=== PATIENT | female | born 1985 | race Caucasian/White ===

== ENCOUNTER 2020-08-14 08:56 | Outpatient (CLI) | payer MEDICAID ==
[~2020-08-14] VITALS: Ht 157.5 cm; Wt 80.0 kg
== END 2020-08-14 09:46 | disposition home or self-care (01) ==
LOC: LDOP 08:56
PROVIDERS: ATTEND Student in an Organized Health Care Education/Training Program
DX: O46.93 Antepartum hemorrhage, unspecified, third trimester (principal); Z3A.36 36 weeks gestation of pregnancy
CPT/HCPCS: 59025

== ENCOUNTER 2020-08-29 03:23 | Inpatient (IN) | payer MEDICAID ==
[~2020-08-29] VITALS: Ht 157.5 cm; Wt 80.0 kg
[2020-08-29] MEDS ORDERED: NEWBORN KIT ONE (04:14)
[2020-08-29] MEDS ORDERED: LIDOCAINE 1%, 20ML ONE (04:14)
[2020-08-29] MEDS ORDERED: MISOPROSTOL 200 MCG TABLET ONE (04:14)
[2020-08-29] MEDS ORDERED: OXYTOCIN 30U/ 0.9% NaCL 500ML 500 ML ONE ×2 (04:14→06:29)
[2020-08-29 04:28] VITALS: BP 106/52
[2020-08-29] MEDS ORDERED: OXYTOCIN 30U/ 0.9% NaCL 500ML 500 ML IV ONE (04:30)
[2020-08-29] MEDS ORDERED: SODIUM CITRATE/CITRIC ACID 30 ML UDC PO PRN (04:30)
[2020-08-29] MEDS ORDERED: TERBUTALINE 1 MG/ML, 1ML IVPush PRN (04:30)
[2020-08-29] MEDS ORDERED: ONDANSETRON 2MG/ML, 2ML IVPush PRN (04:30)
[2020-08-29] MEDS ORDERED: LACTATED RINGERS 1,000 ML IV SCH (04:30)
[2020-08-29] MEDS ORDERED: METOCLOPRAMIDE 5 MG/ML, 2ML IVPush PRN (04:30)
[2020-08-29] MEDS ORDERED: OXYTOCIN 30U/ 0.9% NaCL 500ML 500 ML IV PRN (04:30)
[2020-08-29] MEDS ORDERED: FENTANYL PF 100 MCG/2ML IVPush PRN (04:30)
[2020-08-29] MEDS ORDERED: CALCIUM CARBONATE 500 MG TAB.CHEW PO PRN (04:30)
[2020-08-29] MEDS ORDERED: D5%-LACTATED RINGERS 1,000 ML IV SCH (04:30)
[2020-08-29] MEDS ORDERED: TERBUTALINE 1 MG/ML, 1ML SQ PRN (04:30)
[2020-08-29] MEDS ORDERED: FENTANYL PF 100 MCG/2ML IV PRN (04:30)
[2020-08-29 04:56] LABS: BASOPHILS % (AUTO) 1 % (0-1); EOSINOPHILS % (AUTO) 1 % (1-7); LYMPHOCYTES % (AUTO) 20 % (22-44); MEAN CORPUSCULAR HGB CONC 34.4 g/dL (32.4-35.8); MEAN PLATELET VOLUME 10.3 fL (7.4-10.4); MONOCYTES % (AUTO) 7 % (2-9); NEUTROPHILS % (AUTO) 71 % (42-75); PLATELET COUNT 198 x10^3/uL (130-400); RED BLOOD COUNT 4.03 x10^6/uL (3.82-5.3); RED CELL DISTRIBUTION WIDTH 13.7 % (9.6-15.2)
[2020-08-29] MEDS ORDERED: FENTANYL PF 100 MCG/2ML ONE (04:56)
[2020-08-29] MEDS ORDERED: ONDANSETRON 2MG/ML, 2ML ONE (04:56)
[2020-08-29 04:59] LABS: MD NO
[2020-08-29] MEDS ORDERED: TERBUTALINE 1 MG/ML, 1ML ONE (05:11)
[2020-08-29] MEDS ORDERED: METHYLERGONOVINE 0.2 MG/ML IM PRN (06:30)
[2020-08-29] MEDS ORDERED: ONDANSETRON 2MG/ML, 2ML IV PRN (06:30)
[2020-08-29] MEDS ORDERED: SIMETHICONE 80 MG CHEW TAB PO PRN (06:30)
[2020-08-29] MEDS ORDERED: ACETAMINOPHEN 325 MG TABLET PO PRN (06:30)
[2020-08-29] MEDS ORDERED: OXYcodone IR 5MG TABLET PO PRN ×2 (06:30)
[2020-08-29] MEDS ORDERED: GLYCERIN ADULT SUPP PR PRN (06:30)
[2020-08-29] MEDS ORDERED: TRANEXAMIC ACID 100 MG/ML, 10ML IV ONE (06:30)
[2020-08-29] MEDS ORDERED: METOCLOPRAMIDE 5 MG/ML, 2ML IV PRN (06:30)
[2020-08-29] MEDS ORDERED: DOCUSATE 100 MG CAPSULE PO PRN (06:30)
[2020-08-29] MEDS ORDERED: IBUPROFEN 800 MG TABLET PO PRN (06:30)
[2020-08-29] MEDS ORDERED: CARBOPROST TROMETHAMINE 250 MCG/ML, 1ML IM PRN (06:30)
[2020-08-29] MEDS ORDERED: MISOPROSTOL 200 MCG TABLET PO PRN (06:30)
[2020-08-29] MEDS ORDERED: BISACODYL 10 MG SUPP PR PRN (06:30)
[2020-08-29] MEDS: OXYTOCIN 30U/ 0.9% NaCL 500ML 500 ML IV SCH ×2 (06:31→16:30)
[2020-08-29] MEDS ORDERED: IBUPROFEN 600 MG TABLET ONE (07:07)
[2020-08-29] MEDS: IBUPROFEN 600 MG TABLET PO PRN ×2 (07:15→13:50)
[2020-08-29 08:49] VITALS: BP 107/69
[2020-08-29] MEDS: PRENATAL VIT/IRON/FA 1 EACH TABLET PO SCH (09:00)
[2020-08-29 12:45] VITALS: BP 97/61
[2020-08-29 14:11] LABS: BASOPHILS % (AUTO) 1 % (0-1); EOSINOPHILS % (AUTO) 0 % (1-7); LYMPHOCYTES % (AUTO) 10 % (22-44); MEAN CORPUSCULAR HEMOGLOBIN 31.1 pg (27.0-34.8); MEAN CORPUSCULAR HGB CONC 34.3 g/dL (32.4-35.8); MEAN PLATELET VOLUME 9.9 fL (7.4-10.4); MONOCYTES % (AUTO) 7 % (2-9); NEUTROPHILS % (AUTO) 82 % (42-75); PLATELET COUNT 184 x10^3/uL (130-400); RED BLOOD COUNT 3.34 x10^6/uL (3.82-5.3); RED CELL DISTRIBUTION WIDTH 13.2 % (9.6-15.2)
[2020-08-29 14:14] LABS: MD NO
[2020-08-29 15:33] VITALS: BP 102/67
[2020-08-29 19:50] VITALS: BP 101/67
[2020-08-30] VITALS: BP 100/63
[2020-08-30] MEDS: OXYTOCIN 30U/ 0.9% NaCL 500ML 500 ML IV SCH ×2 (02:30→12:30)
[2020-08-30 04:00] VITALS: BP 99/62
[2020-08-30] MEDS: IBUPROFEN 600 MG TABLET PO PRN (05:06)
[2020-08-30 07:40] VITALS: BP 97/64
[2020-08-30] MEDS: PRENATAL VIT/IRON/FA 1 EACH TABLET PO SCH (09:00)
[2020-08-30] MEDS ORDERED: IBUP-1222 PO (10:03)
== END 2020-08-30 13:17 | disposition home or self-care (01) | DRG 807 ==
LOC: LDOP 03:23 → LDIP 04:00 → 2NW 07:41
PROVIDERS: ADMIT Student in an Organized Health Care Education/Training Program; ATTEND Student in an Organized Health Care Education/Training Program
PROC: 10E0XZZ Delivery of Products of Conception, External Approach (ICD-10-PCS; principal; 2020-08-29)
DX: O69.1XX0 Labor and delivery complicated by cord around neck, with compression, not applicable or unspecified (principal); Z37.0 Single live birth; Z20.822 Contact with and (suspected) exposure to COVID-19; Z3A.38 38 weeks gestation of pregnancy
CPT/HCPCS: 36415; 85025; 86592; 86850; 86900; 87635; 87806; G0378; J2405; J3010; G0475; J2590; J7120